=== PATIENT | male | born 1995 | race Caucasian/White ===

== ENCOUNTER 2016-08-14 22:08 | Emergency (ER) | payer OTHER ==
[~2016-08-14] VITALS: Ht 177.8 cm; Wt 90.7 kg
[2016-08-14 22:37] LABS: ABSOLUTE BASOPHIL COUNT 0 /CUMM (0.0-0.2); ABSOLUTE EOSINOPHIL COUNT 0.5 /CUMM (0.0-0.7); ABSOLUTE GRANULOCYTE CT 7.3 /CUMM (1.4-6.5); ABSOLUTE LYMPH COUNT 2.1 /CUMM (1.2-3.4); ABSOLUTE MONOCYTE COUNT 0.5 /CUMM (0.10-0.60); BASOPHIL % 0.3 % (0.0-2.0); EOSINOPHIL % 4.5 % (0-5); HEMATOCRIT 48.4 % (42-52); MEAN CORPUSCULAR HGB 29.1 PG (27.0-31.0); MEAN CORPUSCULAR HGB CONC 34.3 G/DL (33.0-37.0); MEAN CORPUSCULAR VOLUME 84.8 FL (80.0-94.0); MEAN PLATELET VOLUME 7.9 FL (7.4-10.4); PLATELET COUNT 309 /CUMM (130-400); RBC DISTRIBUTION WIDTH 12.9 % (11.5-14.5); WHITE BLOOD CELL COUNT 10.4 /CUMM (4.8-10.8)
--- NOTE | 2016-08-14 23:08 | ED CARDIAC/CP/PALPITATIONS ---
History of Present Illness General Chief Complaint: Chest Pain Stated Complaint: CHEST PAIN,LIGHTHEADED Source: patient Exam Limitations: no limitations Triage Note: PT COMPLAINS OF SUDDEN ONSET OF L SIDE CP ABOUT 15 MINUTES AGO, PAIN SHARP AND RADIATES INTO HIS L ARM. NSR ON MONITOR. PT STATES THAT HE HAD HARD TIME CATCHING HIS BREATH PRIOR TO ARRIVAL. PT ALSO STATES THAT HE HAS HISTORY OF ANXIETY Triage Nurses Notes Reviewed? yes HPI: This patient is a 20-year-old male who presented to the emergency department today for evaluation of left-sided chest pain. The patient reported that he has an extensive history of anxiety and every night he gets pain in left side of his chest that radiates to his left shoulder and down to his left elbow. He reported some associated numbness and tingling in his arm. He reported that it does hurt when the area of his chest is palpated. He reported that he does not have a primary care physician, but feels like he should be started on anxiety medication. He reported that he recently went through a divorce and has a 2- year-old child in that situation and stress anxiety. The patient also reported that he had an incidentally found renal cyst. He was requesting a CT scan to evaluate the size of the cyst. The patient denied any difficulty breathing, headache, visual changes, abdominal pain, nausea, or vomiting. (BENSON FOWLER,SAIGE) Vital Signs & Intake/Output Vital Signs & Intake/Output Vital Signs Date Time Temp Pulse Resp B/P Pulse O2 O2 Flow FiO2 Ox Delivery Rate 08/14 2347 97.4 80 18 130/72 98 Room Air 08/14 2254 Room Air 08/14 2216 97.6 82 18 153/89 98 Room Air ED Intake and Output 08/15 0000 08/14 1200 Intake Total 0 Output Total Balance 0 Intake, Oral 0 Patient 200 lb Weight Reconcile Medications Naproxen (Naprosyn) 500 MG TABLET 1 TAB PO BID PRN PAIN AND INFLAMMATION (PARIS CARRASCO,JES Mayorga) Past History Travel History Traveled to [place] past 21 day No Medical History Any Pertinent Medical History? see below for history Neurological: NONE EENT: NONE Cardiovascular: NONE Respiratory: NONE Gastrointestinal: NONE Hepatic: NONE Renal: NONE Musculoskeletal: NONE Psychiatric: NONE Endocrine: NONE Blood Disorders: NONE Cancer(s): NONE DISK OPERATOR/Reproductive: NONE Surgical History Surgical History: non-contributory Psychosocial History What is your primary language Italian Tobacco Use: Current Daily Use Daily Tobacco Use Amount/Type: => 5 Cigarettes daily ETOH Use: denies use Illicit Drug Use: denies illicit drug use Family History Hx Contributory? No (BENSON FOWLER,SAIGE) Review of Systems Review of Systems Constitutional: Reports: no symptoms. EENTM: Reports: no symptoms. Respiratory: Reports: no symptoms. Cardiovascular: Reports: see HPI. GI: Reports: see HPI. Genitourinary: Reports: no symptoms. Musculoskeletal: Reports: see HPI. Skin: Reports: no symptoms. Neurological/Psychological: Reports: see HPI. All Other Systems: Reviewed and Negative (BENSON FOWLER,SAIGE) Physical Exam Physical Exam Cardiovascular: regular rate/rhythm, normal peripheral pulses, NO MURMURS, RUBS, OR GALLOPS. nO jvd OR CAROTID BRUITS Comments: Well-developed well-nourished person in no acute distress HEENT: Normal EENT exam, head normocephalic, moist mucous membranes Pupils equally round and reactive to light. Neck: Supple, no lymphadenopathy Back: Normal gait. No CVA tenderness Respiratory: Tenderness to palpation over the third intercostal space, midclavicular line. No respiratory distress. Speaking in full sentences. Lungs clear to auscultation bilaterally with no wheezes, rales, rhonchi Extremity: Normal and equal pulses. Capillary refill less than 2 seconds Neuro: Alert oriented x3, cranial nerves II through XII grossly intact. Skin: No appreciable rash on exposed skin, skin is warm and dry. Psych: Mood and affect is normal Core Measures ACS in differential dx? Yes Severe Sepsis Present: No Septic Shock Present: No (BENSON FOWLER,SAIGE) Progress Differential Diagnosis: AMI, aortic dissection, atrial fibrillation, cholecystitis, CHF/pulm edema, costochondritis, hyperkalemia, hyperthyroid, hyperventilation, musculoskeletal pain, myocarditis, pancreatitis, pericarditis, pneumonia, PSVT, pulmonary embolism, PUD/GERD, PVCs/PACs, unstable angina, ANXIETY Diagnostic Imaging: Viewed by Me: CT Scan. Discussed w/RAD: CT Scan. Radiology Impression: PATIENT: FUENTES GEORGE PRESENT AGE: 20 PATIENT ACCOUNT NO: [id number] : 95 LOCATION: [facility] ORDERING PHYSICIAN: SAIGE KNOWLES PA-C SERVICE DATE: 08/14/16 EXAM TYPE: CAT - CT ABD & PELVIS W/O IV CONTRAS EXAMINATION: CT ABDOMEN AND PELVIS WITHOUT CONTRAST CLINICAL INFORMATION: Flank pain. COMPARISON: None TECHNIQUE: Multidetector volumetric imaging was performed from the superior aspect of the liver through the pubic symphysis. Sagittal and coronal reformatted images were obtained on the technologist's workstation. DLP: 430.01 mGy-cm FINDINGS: LUNG BASES: The visualized lung bases are unremarkable. LIVER, GALLBLADDER, AND BILIARY TREE: 5 mm hypodense lesion dome right lobe of liver segment 8 likely small hepatic cysts. No suspicious liver lesion. No intrapelvic bile duct dilatation. The gallbladder is unremarkable with no evidence of radiopaque gallstones, gallbladder wall thickening, or obvious pericholecystic inflammatory changes. PANCREAS: Unremarkable. SPLEEN: Unremarkable. ADRENAL GLANDS: Left adrenal gland nodule measuring 2.5 cm with density of 10 Hounsfield units consistent with adrenal adenoma. Normal right adrenal gland. KIDNEYS AND URETERS : No renal or ureteral calculus. No hydronephrosis. There are bilateral renal cortical cysts. Left kidney: At the upper pole of left kidney there is a 2 cm cyst. At the anterior mid lower pole of left kidney there is a 3 cm cyst. At the mid pole peripherally there is an 8 mm cortical cysts. There are additional smaller hypodensities in the cortex of the left kidney consistent with additional multiple cysts. Right kidney: At the midpole anterior lateral cortex 1.5 cm cortical cyst at the mid upper pole is a 1.4 cm cortical cyst at the medial cortex is also probable 7 mm cortical cyst at the lower pole right kidney . BLADDER: Unremarkable. GASTROINTESTINAL TRACT: The small and large bowel are unremarkable. The appendix is unremarkable. ABDOMINAL WALL: No significant hernia is appreciated. LYMPH NODES: Normal. VASCULAR: Unremarkable. PELVIC VISCERA: Unremarkable. OSSEOUS STRUCTURES: Unremarkable. IMPRESSION: 1. Multiple bilateral renal cysts. No renal calculus or hydronephrosis. 2. Left adrenal adenoma. DICTATED BY: ALYCIA FLOWERS MD DATE/TIME DICTATED:08/14/162311 [facility] DATE/TIME TRANSCRIBED:08/14/162311 CONFIDENTIAL, DO NOT COPY WITHOUT APPROPRIATE AUTHORIZATION. <Electronically signed in Other Vendor System> SIGNED BY: ALYCIA FLOWERS MD 08/14/164 Initial ED EKG: normal axis, no ST T wave changes, SINUS TACHYCARDIA, 99 BPM. (SAIGE KNOWLES PA-C) Plan of Care: Orders Procedure Date/time Status TROPONIN LEVEL 08/14 2218 Complete COMPREHENSIVE METABOLIC PANEL 08/14 2218 Complete CBC WITHOUT DIFFERENTIAL 08/14 2218 Complete EKG 08/14 2209 Active Laboratory Tests 08/14/162229: Anion Gap 15, Estimated GFR > 60, BUN/Creatinine Ratio 12.5, Glucose 95, Calcium 10.6 H, Total Bilirubin 0.4, AST 24, ALT 48, Alkaline Phosphatase 105, Troponin I < 0.01, Total Protein 7.8, Albumin 4.9, Globulin 2.9, Albumin/Globulin Ratio 1.7, CBC w Diff NO MAN DIFF REQ, RBC 5.70, MCV 84.8, MCH 29.1, RDW 12.9, MPV 7.9 , Gran % 70.0, Lymphocytes % 20.1 L, Monocytes % 5.1, Eosinophils % 4.5, Basophils % 0.3, Absolute Granulocytes 7.3 H, Absolute Lymphocytes 2.1, Absolute Monocytes 0.5, Absolute Eosinophils 0.5, Absolute Basophils 0, PUBS MCHC 34.3 Departure Departure Disposition: HOME OR SELF CARE Condition: Stable Clinical Impression Primary Impression: Anxiety Referrals: MARCIA CARARSCO,TRAY Myles PATIENT HAS NO PRIMARY CARE DR (PCP/Family) Additional Instructions: PLEASE TAKE NAPROXEN PRESCRIBED. FOLLOW-UP WITH THE [facility] RECLAMATION SPECIALIST WHOSE INFORMATION HAS BEEN PROVIDED TO YOU IN THIS PACKET RETURN FOR ANY WORSENING SYMPTOMS OR CONCERNS. Departure Forms: Customer Survey General Discharge Information Prescriptions: Current Visit Scripts Naproxen (Naprosyn) 1 TAB PO BID PRN PAIN AND INFLAMMATION #20 TAB (SAIGE KNOWLES PA-C) PA/FURNACE REPAIR MECHANIC Co-Sign Statement Statement: ED Attending supervision documentation- [] I saw and evaluated the patient. I have also reviewed all the pertinent lab results and diagnostic results. I agree with the findings and the plan of care as documented in the PA's/FURNACE REPAIR MECHANIC's documentation. [X] I have reviewed the ED Record and agree with the PA's/FURNACE REPAIR MECHANIC's documentation. [] Additions or exceptions (if any) to the PAs/FURNACE REPAIR MECHANIC's note and plan are summarized below: [] (PARIS CARRASCO,JES Mayorga) Critical Care Note Critical Care Note Critical Care Time: non-applicable (BENSON FOWLER,SAIGE)
--- NOTE | 2016-08-14 23:24 | CT SCAN REPORT ---
EXAMINATION: CT ABDOMEN AND PELVIS WITHOUT CONTRAST CLINICAL INFORMATION: Flank pain. COMPARISON: None TECHNIQUE: Multidetector volumetric imaging was performed from the superior aspect of the liver through the pubic symphysis. Sagittal and coronal reformatted images were obtained on the technologist's workstation. DLP: 430.01 mGy-cm FINDINGS: LUNG BASES: The visualized lung bases are unremarkable. LIVER, GALLBLADDER, AND BILIARY TREE: 5 mm hypodense lesion dome right lobe of liver segment 8 likely small hepatic cysts. No suspicious liver lesion. No intrapelvic bile duct dilatation. The gallbladder is unremarkable with no evidence of radiopaque gallstones, gallbladder wall thickening, or obvious pericholecystic inflammatory changes. PANCREAS: Unremarkable. SPLEEN: Unremarkable. ADRENAL GLANDS: Left adrenal gland nodule measuring 2.5 cm with density of 10 Hounsfield units consistent with adrenal adenoma. Normal right adrenal gland. KIDNEYS AND URETERS: No renal or ureteral calculus. No hydronephrosis. There are bilateral renal cortical cysts. Left kidney: At the upper pole of left kidney there is a 2 cm cyst. At the anterior mid lower pole of left kidney there is a 3 cm cyst. At the mid pole peripherally there is an 8 mm cortical cysts. There are additional smaller hypodensities in the cortex of the left kidney consistent with additional multiple cysts. Right kidney: At the midpole anterior lateral cortex 1.5 cm cortical cyst at the mid upper pole is a 1.4 cm cortical cyst at the medial cortex is also probable 7 mm cortical cyst at the lower pole right kidney . BLADDER: Unremarkable. GASTROINTESTINAL TRACT: The small and large bowel are unremarkable. The appendix is unremarkable. ABDOMINAL WALL: No significant hernia is appreciated. LYMPH NODES: Normal. VASCULAR: Unremarkable. PELVIC VISCERA: Unremarkable. OSSEOUS STRUCTURES: Unremarkable. IMPRESSION: 1. Multiple bilateral renal cysts. No renal calculus or hydronephrosis. 2. Left adrenal adenoma.
[2016-08-14] MEDS ORDERED: NAPROSYN500 M1 PO (23:42)
[2016-08-14 23:47] VITALS: BP 130/72
== END 2016-08-14 23:47 ==
LOC: ERH 22:08
PROVIDERS: Emergency Medicine
DX: F41.9 Anxiety disorder, unspecified (principal); R07.9 Chest pain, unspecified
CPT/HCPCS: 74176; 93005; 93010